=== PATIENT | male | born 1940 ===

== ENCOUNTER 2017-10-28 15:46 | Observation (INO) | payer OTHER ==
[2017-10-28] MEDS ORDERED: ONDANSETRON 4 MG/2 ML VIAL IVP PRN (16:14)
[2017-10-28] MEDS ORDERED: ONDANSETRON DISINTEGRATING 4 MG TAB PO PRN (16:14)
[2017-10-28] MEDS ORDERED: DILTIAZEM 125 MG in D5W 125 ML IV SCH (16:30)
[2017-10-28] MEDS ORDERED: DILTIAZEM 25 MG/5 ML VIAL IVP ONE ×2 (16:30→18:15)
[2017-10-28 17:13] LABS: % IMMATURE GRANULYOCYTES 0.8 % (0.0-1.1); ABSOLUTE IMMATURE GRANULOCYTES 0.12 10^3/uL (0.00-0.10); ADD DIFF? NO; ADD MORPH? NO; ADD SCAN? NO; ATYPICAL LYMPHOCYTE FLAG 0 (0-99); FRAGMENT RBC FLAG 0 (0-99); HEMATOCRIT 40.7 % (40.0-51.0); HEMOGLOBIN 13.8 g/dL (13.7-17.5); LEFT SHIFT FLG 0 (0-99); LIPEMIA HEMOLYSIS FLAG 90 (0-99); MEAN CELL HEMOGLOBIN 28.5 pg (27.9-34.1); MEAN CELL HEMOGLOBIN CONCENTR. 33.9 g/dL (32.4-36.7); MEAN CELL VOLUME 83.9 fL (81.5-99.8); PLATELET CLUMPS FLAG 40 (0-99); PLATELET COUNT 171 10^3/uL (150-400); RED BLOOD CELL COUNT 4.85 10^6/uL (4.40-6.38); RED CELL DISTRIBUTION WIDTH 15.4 % (11.5-15.2)
[2017-10-28 17:21] LABS: INR 0.97 (0.83-1.16); PROTIME(PATIENT) 13.1 SEC (12.0-15.0)
[2017-10-28 17:22] LABS: ANION GAP 12 mEq/L (8-16); CALCIUM 9.2 mg/dL (8.5-10.4); CARBON DIOXIDE 24 mEq/l (22-31); CHLORIDE 104 mEq/L (97-110); CREATININE 1.1 mg/dL (0.7-1.3); GLOMERULAR FILTRATION RATE > 60; GLUCOSE 84 mg/dL (70-100); POTASSIUM 4.5 mEq/L (3.5-5.2); SODIUM 140 mEq/L (134-144)
--- NOTE | 2017-10-28 17:34 | PDCARPN ---
Cardiology Progress Note Chief Complaint: Patient reports fatigue and shortness of breath. Assessment/Plan: Assessment: Please see Dr. Friedman us office note from 10/28/2017, to be used as our history and physical. Mr. Arturo Javier is a 76-year-old male with known history paroxysmal atrial fibrillation, non flow limiting CAD, hyperlipidemia, hypertension, emphysema, past history of carotid enterectomy, past history of atrial fibrillation ablation. He had noted increased elevated heart rate yesterday, with symptoms of fatigue and lightheadedness. He presented to [facility] emergency department yesterday, in which she was given an IV dose of diltiazem, which attempted rate control, they had notify Dr. Friedman , which in office appointment was made. Patient reported he had gone home, had felt well, did take his , vent nebulizer, and did develop again a another episode fast palpitations. Presenting get into the emergency department for another dose of diltiazem. He was seen by Dr. Friedman in the office, in which she was noted to be in AFib with rapid ventricular response, ventricular rate at 130 BPM. He reporting feeling fatigued and tired, denying of any chest pressure , pain, or shortness of breath. Plan: 1. Persistent atrial fibrillation with rapid ventricular response: Will have patient get laboratory studies including CBC, BMP, and TSH. Will plan on starting him on diltiazem drip tonight with IV bolus. If he has not converted by tomorrow morning, he is scheduled for a RAMONE cardioversion. He will be made NPO after midnight. We will resume his home Eliquis dose. Will have him get an echocardiogram this evening for further evaluation. 2. Non flow limiting CAD: Noted off of cardiac catheterization multiple years ago. He denies of any chest pain or symptoms suggesting of ischemia. He is currently not on aspirin therapy due to being on Eliquis. He has on secondary risk prevention with atorvastatin. Evaluate LV function off of echo. Cycle troponins 3. Hypertension: Patient noted history of hypertension, blood pressure is within normal limits today. Will monitor closely with starting of diltiazem drip, just if necessary. 4. Hyperlipidemia: Will resume patient's home dose of atorvastatin. 5. COPD: Will resume home nebulizers. 6. DVT prophylaxis: Patient is considered a high risk , Elio hose have been ordered. Will resume him on Eliquis as mentioned above. 7. Code status: Patient is a full code. 10/28/17 17:34 Subjective: Patient denies of any chest pressure or pain. Reports fatigue symptoms with occasional lightheadedness. Denies of any shortness breath, Orthopnea, PND, edema, lightheadedness, near-syncope, or syncopal events. Objective: Vital Signs (8 Hrs) Temp Pulse Resp BP Pulse Ox 10/28/17 17:30 120 H 10/28/17 17:24 121 H 10/28/17 17:02 36.8 C 122 H 16 129/92 H 95 Result Diagrams: 10/28/17 16:30 10/28/17 16:30 - Physical Exam Constitutional: WDWN, no apparent distress, obese Ears, Nose, Mouth, Throat: moist mucous membranes Cardiovascular: no rubs, no gallops, irregularly irregular ( AFib on monitor), pulses symmetric bilat, No jugular vein distention, No carotid bruit Peripheral Pulses: 1+: dorsalis-pedis (R), dorsalis-pedis (L), 2+: carotid (R), carotid (L) Respiratory: no crackles, expiratory wheeze, other ( no rales noted.) Gastrointestinal: normoactive bowel sounds Skin: no rashes, warm, no edema Neurologic: AAOx3 Psychiatric: cooperative, interactive, following commands ICD10 Worksheet Patient Problems: Problems Problem Status Onset Atrial fibrillation and flutter Acute
[2017-10-28] MEDS: IPRATROPIUM/ALBUTEROL 3 ML DEYVIAL IH SCH (20:46)
[2017-10-28] MEDS: BUDESONIDE/FORMOTEROL 160/4.5 60 PUFFS/MDI IH SCH (20:46)
[2017-10-28] MEDS ORDERED: ATORVASTATIN CALCIUM 20 MG TAB PO SCH (21:00)
[2017-10-28] MEDS: APIXABAN 5 MG TAB PO SCH (21:14)
[2017-10-29 05:33] LABS: ANION GAP 10 mEq/L (8-16); CARBON DIOXIDE 26 mEq/l (22-31); CHLORIDE 107 mEq/L (97-110); CREATININE 1.1 mg/dL (0.7-1.3); GLOMERULAR FILTRATION RATE > 60; GLUCOSE 95 mg/dL (70-100); POTASSIUM 4.7 mEq/L (3.5-5.2); SODIUM 143 mEq/L (134-144)
[2017-10-29 05:39] LABS: TROPONIN I < 0.012 ng/mL (0.000-0.034)
[2017-10-29] MEDS ORDERED: ATROPINE SULFATE 1 MG/10 ML SYR IVP ONE (06:00)
[2017-10-29] MEDS ORDERED: NS 1,000 ML IV ONE (06:00)
[2017-10-29 07:38] VITALS: TEMP 97.8; O2SAT 95
[2017-10-29] MEDS ORDERED: CYANO/VITAMIN B12 1000 MCG TAB PO SCH (09:00)
[2017-10-29] MEDS ORDERED: MULTIVITAMINS 1 EACH TAB PO SCH (09:00)
--- NOTE | 2017-10-29 09:01 | CPEKG ---
Heart Rate: 94 RR Interval: 638 P-R Interval: 115 QRSD Interval: 102 QT Interval: 368 QTC Interval: 461 P [place]: 0 QRS [place]: 48 T Wave [place]: 67 EKG Severity - ABNORMAL ECG - EKG Impression: SINUS RHYTHM - POSSIBLE ATRIAL FLUTTER WITH BLOCK EKG Impression: PROBABLE LEFT ATRIAL ABNORMALITY EKG Impression: LOW VOLTAGE IN FRONTAL LEADS EKG Impression: NONSPECIFIC T ABNORMALITIES, INFERIOR LEADS Electronically Signed By: Constance Ford 29-Oct-2017 10:43:19
[2017-10-29] MEDS: APIXABAN 5 MG TAB PO SCH (09:13)
--- NOTE | 2017-10-29 09:46 | ASMTCASEMG ---
Living Arrangements What is your living Answers: With Spouse arrangement? Who do you live with? Type Of Residence What kind of residence do Answers: House you live in? Discharge Plan Comments Coordination Status Comments Notes: CM spoke w/ ZEN Tolentino regarding d/c POC. Pt is a 76 y/o man admitted for AFIB/SOB. Anticipates that pt will d/c independent when medically stable w/ supportive . No therapies ordered at this time. CM available for changes. Plan: Independent Date Signed: 10/29/2017 09:44 AM Electronically Signed By:LISA Andrews
--- NOTE | 2017-10-29 10:07 | PDANEPAE ---
ANE History of Present Illness 76 year old male w/ A. Fib w/ RVR (on diltiazem drip) presents for CV. Patient has a known PMHx of CAD (non flow limiting), HTN, HLD, COPD. ANE Past Medical History - Cardiovascular History Hx Hypertension: Yes Hx Arrhythmias: Yes Hx Chest Pain: No Hx Coronary Artery / Peripheral Vascular Disease: Yes Hx CHF / Valvular Disease: No Hx Palpitations: No - Pulmonary History Hx COPD: Yes Hx Asthma/Reactive Airway Disease: No Hx Recent Upper Respiratory Infection: No Hx Oxygen in Use at Home: No Hx Sleep Apnea: No Sleep Apnea Screening Result - Last Documented: Positive - Endocrine History Hx Diabetes: No Hypothyroid: No Hyperthyroid: No Obesity: no - Renal History Hx Renal Disorders: No - Liver History Hx Hepatic Disorders: No - Neurological & Psychiatric Hx Hx Neurological and Psychiatric Disorders: No - Cancer History Hx Cancer: No - GI History GERD: no Hx Gastrointestinal Disorders: No - Chronic Pain History Chronic Pain: No ANE Review of Systems Review of systems is: negative Review of Systems: - Exercise capacity Exercise capacity: <4 METS ANE Patient History - Allergies Allergies/Adverse Reactions: Beta-Blockers (Beta-Adrenergic Bloc Allergy (Verified 04/30/11 07:58) - Home Medications Home Medications: Apixaban [Eliquis] 5 mg PO BID 06/26/15 [Last Taken 10/28/17 09:00] Atorvastatin Calcium [Lipitor 20 mg (*)] 20 mg PO HS 06/26/15 [Last Taken ] Ipratropium/Albuterol [Duoneb (*)] 3 ml IH BID 06/26/15 [Last Taken 10/27/17] Multivitamins [Multivitamin (*)] 1 each PO DAILY 06/26/15 [Last Taken 10/27/17] Budesonide/Formoterol 160/4.5 [Symbicort 160-4.5 Mcg Inh (*)] 2 puffs IH BID [Last Taken 10/28/17 09:00] Cyanocobalamin [Vitamin B12 (*)] 5,000 mcg PO DAILY 10/28/17 [Last Taken ] Diltiazem Cd [Cardizem ER 120 MG (*)] 120 mg PO DAILY 10/28/17 [Last Taken 10/28] Lisinopril [Zestril 10 mg (*)] 10 mg PO HS 10/28/17 [Last Taken 10/27/17] Temazepam [Restoril 15 MG (*)] 15 mg PO HSPRN PRN 10/28/17 [Last Taken 10/27/17] - NPO status NPO Status: no food or drink >8 hours NPO Since - Liquids (Date): 10/29/17 NPO Since - Liquids (Time): 00:00 NPO Since - Solids (Date): 10/28/17 NPO Since - Solids (Time): 19:00 - Anes Hx Anes Hx: no prior problems - Smoking Hx Smoking Status: Former smoker Marijuana use: No - Alcohol Use Alcohol Use: Rarely - Family Anes Hx Family Anes Hx: neg - N/A ANE Labs/Vital Signs - Labs Result Diagrams: 10/28/17 16:30 10/29/17 05:08 - Vital Signs Vital Signs: reviewed preoperatively; see RN documention for details Blood Pressure: 135/91 Heart Rate: 94 Respiratory Rate: 14 O2 Sat (%): 95 Height: 180.34 cm ANE Physical Exam - Airway Neck exam: FROM Mallampati Score: Class 2 Mouth exam: dentures, prajapati - Pulmonary Pulmonary: reduced air movement, bronchial breath sounds - Cardiovascular Cardiovascular: irregularly irregular - ASA Status ASA Status: III ANE Anesthesia Plan Anesthesia Plan: GA with mask Total IV Anesthesia: Yes
[2017-10-29] MEDS ORDERED: PROPOFOL 200 MG/20 ML VIAL ONE (10:27)
[2017-10-29] MEDS: IPRATROPIUM/ALBUTEROL 3 ML DEYVIAL IH SCH (10:27)
[2017-10-29] MEDS: BUDESONIDE/FORMOTEROL 160/4.5 60 PUFFS/MDI IH SCH (10:27)
--- NOTE | 2017-10-29 10:36 | PDHPUP ---
History & Physical Update H&P update statement: This history and physical update is based on an assessment of the patient which was completed after admission or registration (within 24 hours), but prior to the surgery/procedure. H&P update: H&P reviewed & patient examined, no change in patient's condition since H&P completed
--- NOTE | 2017-10-29 10:54 | CPEKG ---
Heart Rate: 77 RR Interval: 779 P-R Interval: 132 QRSD Interval: 88 QT Interval: 384 QTC Interval: 435 P [place]: 79 QRS [place]: 37 T Wave [place]: 50 EKG Severity - OTHERWISE NORMAL ECG - EKG Impression: SINUS RHYTHM EKG Impression: ATRIAL PREMATURE COMPLEX EKG Impression: LOW VOLTAGE IN FRONTAL LEADS Electronically Signed By: Constance Ford 29-Oct-2017 19:04:15
[2017-10-29] MEDS ORDERED: DILTIAZEM CD 120 MG CAP PO SCH (11:15)
--- NOTE | 2017-10-29 12:26 | ECHO ---
[email or web address] [address] Main: [phone] Fax: Transthoracic Echocardiogram Name: MAI WINN MR#: [id number] Study Date: 10/28/2017 Study Time: 04:19 PM Date of : 1940 Age: 76 year(s) Height: 180.3 cm (71 in.) Weight: 88.45 kg (195 lb.) BSA: 2.09 m2 Gender: Male Examination: Echo Indication: Atrial Flutter Image Quality: Contrast: Requested by: Alan Friedman BP: / Heart Rate: Rhythm: Indication: Atrial Flutter Procedure Staff Deputy Administrator: Sofia Felipe Physician: Wang Vaughan Requesting Provider: Conclusions: Normal size left ventricle. No LV hypertrophy. Normal global systolic LV function. The ejection fraction is estimated to be 55-60 %. Normal diastolic LV function. The left atrium is mildly dilated. The right atrium is mildly dilated. Trivial mitral valve regurgitation. Trivial tricuspid valve regurgitation. Left side pleural effusion. Measurements: Chambers Valvular Assessment AV/MV Valvular Assessment TV/PV Normal Normal Normal Name Value Range Name Value Range Name Value Range Ao [place] (MM): 3.6 cm (2.2 cm-3.7 AV meanP mmHg ( - ) TR Vmax: 2.04 mm/s ( - ) cm) MV E Vmax: 0.94 m/s ( - ) TR PGmax: 17 mmHg ( - ) IVSd (2D): 0.8 cm (0.6 cm-1.1 syst. PAP: 22 mmHg ( - ) cm) LVDd (2D): 5.2 cm (4.2 cm-5.9 cm) LVDs (2D): 3.5 cm (2.1 cm-4 cm) LVPWd (2D): 0.9 cm (0.6 cm-1 cm) LVEF (2D): 61 (>=54 %) EF Range: 55-60 % Continued Measurements: Chambers Valvular Assessment TV/PV Patient: MAI WINN Study Date: 10/28/2017 Page 1 of 2 04:19 PM Name Value Name Value LADs: 4.2 cm CVP (est.): 5 mmHg LADs Lon.6 cm LA Area: 21.7 cm2 Findings: Left Ventricle: Normal size left ventricle. No LV hypertrophy. Normal global systolic LV function. The ejection fraction is estimated to be 55-60 %. No regional wall motion abnormality. Normal diastolic LV function. Right Ventricle: Normal size right ventricle. Left Atrium: The left atrium is mildly dilated. Right Atrium: The right atrium is mildly dilated. Mitral Valve: The mitral valve is normal in appearance and function. Trivial mitral valve regurgitation. Aortic Valve: The aortic valve is normal in appearance and function. Tricuspid Valve: The tricuspid valve is normal in appearance and function. Trivial tricuspid valve regurgitation. Pulmonic Valve: The pulmonic valve is normal in appearance and function. Aorta: The aorta is normal. Pericardium: No pericardial effusion. Left side pleural effusion. (No Signature Object) Patient: MAI WINN Study Date: 10/28/2017 Page 2 of 2 04:19 PM [id number]
[2017-10-29 13:04] VITALS: BP 147/93; PULSE 102; RESP 16
--- NOTE | 2017-10-29 13:42 | GDS ---
[f rep st] DISCHARGE SUMMARY ADMISSION DIAGNOSES: 1. Persistent atrial fibrillation with rapid ventricular response. 2. Btu-kmut-mtjetzns coronary artery disease. 3. Hypertension. 4. Hyperlipidemia. 5. Chronic obstructive pulmonary disease. 6. Peripheral vascular disease. DISCHARGE DIAGNOSES: 1. Paroxysmal atrial fibrillation. 2. Ipp-crcc-blfygraa coronary artery disease. 3. Hypertension. 4. Hyperlipidemia. 5. Chronic obstructive pulmonary disease. 6. Peripheral vascular disease. PROCEDURES PERFORMED DURING HOSPITALIZATION: 1. Electrocardiogram. 2. Cardioversion. BRIEF HISTORY: Please see H and P. briefly, the patient is a 76-year-old male with known history of paroxysmal atrial fibrillation. He has been noted to have an ablation in the past. He reported, st arting on October 27, having episodes of increased elevated heart rate. He was seen at [facility] department for his complaint, was given IV diltiazem, slowed down, and sent home. Unfortuna tely, when he went home and took his nebulizer treatment for his emphysema, heart rate increased agai n, requiring a repeated visit later that afternoon. Again, IV diltiazem was given and sent home. He was seen in our office yesterday by Dr. Friedman, and due to how fast his rate was going in atrial fibril lation, around 130-140 BPM, it was decided for the patient to be directly admitted to the hospital fo r IV diltiazem for rate control, with plans of cardioversion. HOSPITAL COURSE: Patient was admitted to the PCU. There, he was started on IV diltiazem, in which r ate was controlled. He reported no chest pain or shortness of breath. He has had no abnormal tropon in levels. He did have an echocardiogram done, showing normal LV wall motion. This morning, his rat e was much better controlled, he was made n.p.o. last night, and he underwent cardioversion by Dr. Yosef ontiveros, successfully converting him back into sinus rhythm. At the current time, he denies having any ch est pain, shortness of breath, palpitations, or lightheadedness. He is in sinus rhythm on the monito rs. PHYSICAL EXAMINATION: GENERAL APPEARANCE: Done today, medium built, mildly obese male. H e is alert and oriented to person, place, time, and situation. Appears to be in no acute distress. CURRENT VITAL SIGNS: Blood pressure is 135/97, 73 sinus rhythm on the monitor, respirations 14, satu rating 95%. Temperature this morning was 36.6 degrees Celsius. HEENT: Head is normocephalic. Lips and tongue are pink and moist, with no signs of cyanosis. Conjunctivae are pink. NECK: Trachea is midline, +2 carotid pulses bilateral. No auscultated bruits, no jugular vein distention. RESPIRATO RY: Lungs are clear to auscultation, no rhonchi, rales or wheezes. No accessory muscle use. No int ercostal muscle retraction noted. CARDIAC: Regular rate, regular rhythm, S1, S2. No S3, S4, gallop s, rubs or murmur. ABDOMEN: Soft, nontender, bowel sounds x4 quadrants. No organomegaly. No palpa ble masses. SKIN: [place], warm, dry, no cyanosis, no clubbing, no peripheral edema, trace pedal edema bilateral lower extremities. VASCULAR: +2 carotids bilateral, +2 radials bilateral, +1 dorsal peda l and posterior tibial pulses bilateral. LABORATORY STUDIES: Laboratory studies drawn on admission showed WBC of 14.53, hemoglobin of 13.8, h ematocrit of 40.7, platelet count of 171, INR of 0.97. Patient was noted to have 3 negative troponin levels during hospitalization, all less than 0.012. TSH was 1.120. This morning's laboratory showe d sodium of 143, potassium 4.07, chloride 107, CO2 26, BUN 26, creatinine 1.1, glucose 95, calcium 9. 0. DISCHARGE STUDIES: Post cardioversion electrocardiogram done today showing sinus rhythm with prematu re atrial contraction, no significant ST or T-wave abnormalities. Preliminary echocardiogram showing normal LV wall motion with normal ejection fraction. Cardioversion as mentioned above. DISCHARGE INSTRUCTIONS: Post cardioversion discharge instructions given to the patient. DISCHARGE MEDICATIONS: Please see discharge med reconciliation sheet. Note that Dr. Friedman has wanted the patient's diltiazem to be increased to 120 mg p.o. b.i.d. He will resume all the rest of his alexx e medications. DISCHARGE INSTRUCTIONS: Post cardioversion discharge instructions went over with the patient and his , and they verbalized understanding. Dr. Friedman's nurse will call the patient early next week and set up an appointment to potentially undergo ablation in the next few weeks. At the time of discharg e, patient and his both verbalized understanding of all instructions and have no questions or co ncerns. The patient will follow up with Dr. Friedman for ablation. If he has any problems or concerns pos t discharge, they are to call our office or return to the hospital. Total time spent on discharge greater than 30 minutes. /[id number]/MODL
--- NOTE | 2017-10-29 15:06 | POSTANESTH ---
Post Anesthetic Evaluation Cardiovascular Status: Normal, Stable, Similar to Pre-Op Cond Respiratory Status: Normal, Stable, Similar to Pre-op Cond. Level of Consciousness/Mental Status: Can Participate in Eval, Alert and Oriented Pain Control: Adequate, Prn Tx Ordered Nausea/Vomiting Control: Adequate, Prn Tx Ordered Complications Possibly Related to Anesthesia: None Noted
--- NOTE | 2017-10-30 08:44 | EPPROC ---
Electrophysiology Procedure Note: Procedure: DCCV Indication: AF Procedure: pt sedated by members of anesthesia staff. Once sedated, 200 J of synchronized DCCV performed. Pt successfully converted to SR. Conclusion: Successful CV Patient Problems: Problems Problem Status Onset Atrial fibrillation and flutter Acute
--- NOTE | 2017-10-30 15:37 | ASDISCHSUM ---
Discharge Information Plan Status:Home with No Needs Medically Cleared to Leave: Discharge Date:10/29/2017 01:10 PM CM D/C Disposition:Home, Routine, Self-Care ADT D/C Disposition:Home, Routine, Self-Care Projected Discharge Date:10/29/2017 01:10 PM Transportation at D/C: Discharge Delay Reason: Follow-Up Date:10/29/2017 01:10 PM Discharge Slot: Final Diagnosis: Placement Information Patient Contact Information Contact Name:DONAVAN Relationship: Address:[address] [place] Alternate Phone: [facility]/Zip Code:[place] [address] Email: Financial Information Financial Class:Medicare Advantage Plans Primary Plan Desc:[facility] ADVANTAGE PLANS Primary Plan Number:[id number] Secondary Plan Desc: Secondary Plan Number: Assessment Information [facility] Initial CM Assessment Living Arrangements What is your living Answers: With Spouse arrangement? Who do you live with? Type Of Residence What kind of residence do Answers: House you live in? Discharge Plan Comments Coordination Status Comments Notes: CM spoke w/ ZEN Tolentino regarding d/c POC. Pt is a 76 y/o man admitted for AFIB/SOB. Anticipates that pt will d/c independent when medically stable w/ supportive . No therapies ordered at this time. CM available for changes. Plan: Independent Date Signed: 10/29/2017 09:44 AM Electronically Signed By:LISA Andrews Intervention Information Intervention Type:*Incorrect Registration Date of Service:10/28/2017 11:40 AM Patient Type:Observation Staff Member:ZEN Overton, Mel Hours: Discipline: Severity: Comment:
== END 2017-10-29 13:10 | disposition home or self-care (01) ==
LOC: INTOOBSV 16:06 → F2W 16:06
PROVIDERS: ADMIT Internal Medicine Cardiovascular Disease; ATTEND Internal Medicine Cardiovascular Disease
PROC: 5A2204Z Restoration of Cardiac Rhythm, Single (ICD-10-PCS; principal; 2017-10-28)
DX: I48.0 Paroxysmal atrial fibrillation (principal); I25.10 Atherosclerotic heart disease of native coronary artery without angina pectoris; I10 Essential (primary) hypertension; E78.5 Hyperlipidemia, unspecified; J44.9 Chronic obstructive pulmonary disease, unspecified; I73.9 Peripheral vascular disease, unspecified
CPT/HCPCS: 92960; 93005; 93306; G0378; J2704

== ENCOUNTER → 2017-11-19 | Day surgery (SDC) | payer OTHER ==
[~2017-11-19] MED LIST: ATROPINE SULFATE 1 MG/10 ML SYR IVP ONE; ATROPINE SULFATE 1 MG/10 ML SYR ONE; MIDAZOLAM 2 MG/2 ML VIAL IVP ONE; NS 500 ML IV ONE; PROPOFOL 200 MG/20 ML VIAL ONE; fentaNYL 100 MCG/2 ML INJ IVP ONE
--- NOTE | 2017-11-19 10:08 | POSTANESTH ---
Post Anesthetic Evaluation Cardiovascular Status: Similar to Pre-Op Cond Respiratory Status: Similar to Pre-op Cond. Level of Consciousness/Mental Status: Can Participate in Eval, Moderately Sleepy Pain Control: Adequate, Prn Tx Ordered Nausea/Vomiting Control: Adequate, Prn Tx Ordered Complications Possibly Related to Anesthesia: None Noted
--- NOTE | 2017-11-19 10:08 | PDANEPAE ---
ANE History of Present Illness Cardioversion ANE Past Medical History - Cardiovascular History Hx Hypertension: Yes Hx Arrhythmias: Yes Hx Chest Pain: No Hx Coronary Artery / Peripheral Vascular Disease: Yes Hx CHF / Valvular Disease: Yes Hx Palpitations: No - Pulmonary History Hx COPD: Yes Hx Asthma/Reactive Airway Disease: No Hx Recent Upper Respiratory Infection: No Hx Oxygen in Use at Home: No Hx Sleep Apnea: No - Endocrine History Hx Diabetes: No - Renal History Hx Renal Disorders: No - Liver History Hx Hepatic Disorders: No - Neurological & Psychiatric Hx Hx Neurological and Psychiatric Disorders: No - Cancer History Hx Cancer: No - GI History Hx Gastrointestinal Disorders: No - Chronic Pain History Chronic Pain: No ANE Review of Systems Review of Systems: SOB secondary to a flutter, COPD - Exercise capacity Exercise capacity: >=4 METS ANE Patient History - Allergies Allergies/Adverse Reactions: Beta-Blockers (Beta-Adrenergic Bloc Allergy (Verified 04/30/11 07:58) - Home Medications Home medications: home medication list seen and reviewed Home Medications: Apixaban [Eliquis] 5 mg PO BID 06/26/15 [Last Taken 10/28/17 09:00] Atorvastatin Calcium [Lipitor 20 mg (*)] 20 mg PO HS 06/26/15 [Last Taken ] Ipratropium/Albuterol [Duoneb (*)] 3 ml IH BID 06/26/15 [Last Taken 10/27/17] Multivitamins [Multivitamin (*)] 1 each PO DAILY 06/26/15 [Last Taken 10/27/17] Budesonide/Formoterol 160/4.5 [Symbicort 160-4.5 Mcg Inh (*)] 2 puffs IH BID [Last Taken 10/28/17 09:00] Cyanocobalamin [Vitamin B12 (*)] 5,000 mcg PO DAILY 10/28/17 [Last Taken ] Lisinopril [Zestril 10 mg (*)] 10 mg PO HS 10/28/17 [Last Taken 10/27/17] Temazepam [Restoril 15 MG (*)] 15 mg PO HSPRN PRN 10/28/17 [Last Taken 10/27/17] - NPO status NPO Status: no food or drink >8 hours - Anes Hx Anes Hx: no prior problems - Smoking Hx Smoking Status: Former smoker - Family Anes Hx Family Anes Hx: none ANE Labs/Vital Signs - Labs Result Diagrams: 11/19/17 10:05 ANE Physical Exam - Airway Neck exam: FROM Mallampati Score: Class 2 Mouth exam: dentures - Pulmonary Pulmonary: no respiratory distress - Cardiovascular Cardiovascular: regular rate and rhythym - ASA Status ASA Status: III ANE Anesthesia Plan Total IV Anesthesia: Yes
[2017-11-19 10:37] LABS: INR 1.21 (0.83-1.16); PROTIME(PATIENT) 15.5 SEC (12.0-15.0)
--- NOTE | 2017-11-19 11:00 | PDCARD ---
Cardioversion Procedure Procedure: electrical cardioversion Indications: atrial fibrillation Consent: signed and in chart Anticoagulation: eliquis Procedural Details: Pads were placed in anterior-posterior position. Synchronized cardioversion attempt #1: 200J Results: normal sinus rhythm Conclusions: successful cardioversion Patient Problems: Problems Problem Status Onset Atrial fibrillation and flutter Acute
--- NOTE | 2017-11-23 15:10 | CPEKG ---
Heart Rate: 91 RR Interval: 659 P-R Interval: 132 QRSD Interval: 82 QT Interval: 352 QTC Interval: 434 P [place]: 75 QRS [place]: 26 T Wave [place]: 82 EKG Severity - ABNORMAL ECG - EKG Impression: SINUS RHYTHM EKG Impression: CONSIDER POSTERIOR INFARCT Electronically Signed By: Alan Friedman 23-Nov-2017 20:29:32
== END | disposition home or self-care (01) ==
LOC: FCATH 09:40
PROVIDERS: ATTEND Internal Medicine Cardiovascular Disease
PROC: 5A2204Z Restoration of Cardiac Rhythm, Single (ICD-10-PCS; principal; 2017-11-19)
DX: I48.91 Unspecified atrial fibrillation (principal); I48.92 Unspecified atrial flutter; J44.1 Chronic obstructive pulmonary disease with (acute) exacerbation; Z87.891 Personal history of nicotine dependence
CPT/HCPCS: J0461; J2704

== ENCOUNTER → 2017-12-18 | Outpatient (CLI) | payer OTHER ==
[~2017-12-18] MED LIST changes: -ATROPINE SULFATE 1 MG/10 ML SYR IVP ONE; -ATROPINE SULFATE 1 MG/10 ML SYR ONE; +IOPAMIDOL (ISOVUE 370) 100 ML BTL IV ONE; -MIDAZOLAM 2 MG/2 ML VIAL IVP ONE; -NS 500 ML IV ONE; -PROPOFOL 200 MG/20 ML VIAL ONE; -fentaNYL 100 MCG/2 ML INJ IVP ONE
== END ==
LOC: FIMAGING 09:50
PROVIDERS: ATTEND Internal Medicine Cardiovascular Disease
DX: I48.91 Unspecified atrial fibrillation (principal); I48.92 Unspecified atrial flutter
CPT/HCPCS: 75572; Q9967

== ENCOUNTER 2017-12-21 10:41 | Observation (INO) | payer OTHER ==
[2017-12-21] MEDS ORDERED: NS 1,000 ML IV ONE (10:48)
[2017-12-21] MEDS ORDERED: MIDAZOLAM 2 MG/2 ML VIAL IVP ONE (11:06)
--- NOTE | 2017-12-21 11:06 | PDANEPAE ---
ANE Past Medical History - Cardiovascular History Hx Hypertension: Yes Hx Arrhythmias: Yes Hx Chest Pain: No Hx Coronary Artery / Peripheral Vascular Disease: Yes Hx CHF / Valvular Disease: Yes Hx Palpitations: No - Pulmonary History Hx COPD: Yes Hx Asthma/Reactive Airway Disease: No Hx Recent Upper Respiratory Infection: No Hx Oxygen in Use at Home: No Hx Sleep Apnea: No - Endocrine History Hx Diabetes: No - Renal History Hx Renal Disorders: No - Liver History Hx Hepatic Disorders: No - Neurological & Psychiatric Hx Hx Neurological and Psychiatric Disorders: No - Cancer History Hx Cancer: No - GI History Hx Gastrointestinal Disorders: No - Chronic Pain History Chronic Pain: No ANE Review of Systems Review of Systems: - Exercise capacity Exercise capacity: >=4 METS ANE Patient History - Allergies Allergies/Adverse Reactions: Beta-Blockers (Beta-Adrenergic Bloc Allergy (Verified 04/30/11 07:58) - Home Medications Home Medications: Apixaban [Eliquis] 5 mg PO BID 06/26/15 [Last Taken 11/19/17] Atorvastatin Calcium [Lipitor 20 mg (*)] 20 mg PO HS 06/26/15 [Last Taken ] Multivitamins [Multivitamin (*)] 1 each PO DAILY 06/26/15 [Last Taken 11/18/17] Cyanocobalamin [Vitamin B12 (*)] 5,000 mcg PO DAILY 10/28/17 [Last Taken ] Lisinopril [Zestril 10 mg (*)] 10 mg PO HS 10/28/17 [Last Taken 11/18/17] Temazepam [Restoril 15 MG (*)] 15 mg PO HSPRN PRN 10/28/17 [Last Taken 11/18/17] Omeprazole [Prilosec 20 mg] 20 mg PO DAILY 12/14/17 [Last Taken Unknown] Umeclidinium Brm/Vilanterol Tr [Anoro Ellipta 62.5-25 Mcg INH] 1 each IH DAILY 12/14/17 [Last Taken Unknown] - NPO status NPO Status: no food or drink >8 hours - Anes Hx Anes Hx: no prior problems - Smoking Hx Smoking Status: Former smoker ANE Physical Exam - Airway Neck exam: FROM Mallampati Score: Class 2 Mouth exam: normal dental/mouth exam - Pulmonary Pulmonary: no respiratory distress, no rales or rhonchi, clear to auscultation - Cardiovascular Cardiovascular: regular rate and rhythym, no murmur, rub, or gallop - ASA Status ASA Status: III ANE Anesthesia Plan Anesthesia Plan: GA w LMA
--- NOTE | 2017-12-21 11:10 | PDGENHP ---
History & Physical Chief Complaint: Palpitations History of Present Illness: CB ablation 2014, now has left AT vs AFL Relevant Physical Exam: s1s2 irreg. cta. ao 3 Cardiorespiratory Assessment: left at vs afl ablation
[2017-12-21 11:24] LABS: PLATELET COUNT 174 10^3/uL (150-400)
--- NOTE | 2017-12-21 11:31 | CPEKG ---
Heart Rate: 68 RR Interval: 882 P-R Interval: 140 QRSD Interval: 90 QT Interval: 396 QTC Interval: 422 P [place]: 65 QRS [place]: 24 T Wave [place]: 40 EKG Severity - NORMAL ECG - EKG Impression: SINUS RHYTHM Electronically Signed By: Alan Friedman 21-Dec-2017 13:37:17
[2017-12-21 11:33] LABS: INR 0.96 (0.83-1.16)
[2017-12-21] MEDS ORDERED: HEPARIN/DEXTROSE 25,000 UNIT/500 ML BAG ONE (11:40)
[2017-12-21] MEDS ORDERED: HEPARIN 10,000 UNIT/10 ML MDV (1,000 UNIT/ML) ONE (11:40)
[2017-12-21] MEDS ORDERED: BUPIVACAINE 0.5% 30 ML SDV ONE (11:40)
[2017-12-21] MEDS ORDERED: ISOPROTERENOL HCL/D5W 0.2 MG/50 ML BAG IV ONE (11:41)
[2017-12-21] MEDS ORDERED: MIDAZOLAM 2 MG/2 ML VIAL ONE (11:43)
[2017-12-21] MEDS ORDERED: fentaNYL 250 MCG/5 ML INJ ONE (12:13)
[2017-12-21] MEDS ORDERED: DEXAMETHASONE 4 MG/ML VIAL ONE (12:13)
[2017-12-21] MEDS ORDERED: LIDOCAINE 2% 5 ML SDV ONE (12:13)
[2017-12-21] MEDS ORDERED: ROCURONIUM 100 MG/10 ML VIAL ONE (12:13)
[2017-12-21] MEDS ORDERED: SUGAMMADEX SODIUM 200 MG/2 ML VIAL IVP ONE (12:13)
[2017-12-21] MEDS ORDERED: PROPOFOL 200 MG/20 ML VIAL ONE (12:13)
[2017-12-21] MEDS ORDERED: ONDANSETRON 4 MG/2 ML VIAL ONE (12:14)
[2017-12-21] MEDS ORDERED: PHENYLEPHRINE HCL 100 MCG/ML SYR ONE ×2 (13:33)
[2017-12-21] MEDS ORDERED: PROTAMINE SULFATE 50 MG/5 ML VIAL IVP ONE (14:25)
[2017-12-21] MEDS ORDERED: fentaNYL 100 MCG/2 ML INJ IVP PRN (14:32)
[2017-12-21] MEDS ORDERED: NALOXONE HCL 0.4 MG/ML INJ IVP PRN (14:32)
[2017-12-21] MEDS ORDERED: NS 500 ML IV PRN (14:32)
[2017-12-21] MEDS ORDERED: ACETAMINOPHEN 500 MG TAB PO PRN (14:32)
[2017-12-21] MEDS ORDERED: PROMETHAZINE HCL 25 MG/ML INJ IVP PRN (14:32)
[2017-12-21] MEDS ORDERED: MEPERIDINE 25 MG/ML SYR IVP PRN (14:32)
[2017-12-21] MEDS ORDERED: HYDROCODONE/APAP 5/325 TAB PO PRN (14:32)
[2017-12-21] MEDS ORDERED: ONDANSETRON 4 MG/2 ML VIAL IVP PRN (14:32)
--- NOTE | 2017-12-21 14:49 | EPPROC ---
Electrophysiology Procedure Note: ELECTROPHYSIOLOGIC STUDY AND CATHETER MEDIATED ABLATION FOR SUBEUSTACHIAN ISTHMUS DEPENDENT COUNTERCLOCKWISE ATRIAL FLUTTER AND MAPPING OF PULMONARY VEINS : INDICATION: AFIB CB ablation and AFL RF ablation at our institution in 2014 Atrial flutter vs atrial tachycardia in 2017 PROCEDURES PERFORMED: 20307-30 EP evaluation with RA/RV/LA pace/record, with arrhythmia induction 70440-33 EP evaluation with RA/RV pace record, insert/reposition catheter, with arrhythmia induction 24545 SVT ablation 08788 3D mapping Fluoroscopy Catheters & Anesthesia: The patient arrived in the Electrophysiology Laboratory in the fasting state. The right clavicular region, right groin, and left groin area were prepped and draped in the usual sterile manner. Anesthesiologist Dr. Dayanara Aquino administered general anesthesia. Appropriate non-invasive blood pressure, pulse oximetry and end-tidal CO2 monitoring was established. All catheters were placed percutaneously using the modified Seldinger technique , and advanced into position under fluoroscopic guidance. One #7 Macanese deflectable octapolar electrode catheter was advanced to the His-bundle position via the left femoral vein (2mm spacing; except the proximal ring which was 25cm from the tip used for unipolar recordings). One #7 Macanese deflectable catheter with 10 pairs of electrodes was placed via the left femoral vein into the coronary sinus. One # 7 Macanese Halo catheter was inserted through the right femoral vein and was placed at the tricuspid annulus. Heparin was administered to keep ACT > 300 seconds. Programmed stimulation was performed from the right atrium, coronary sinus ( left atrium) and right ventricle. Parahisian pacing demonstrated all retrograde conduction over the AV node. On arrival to the Electrophysiology Laboratory the patient was in sinus rhythm. After placement of the catheters it was noted that there was conduction across the cava tricuspid isthmus. An Agilis sheath was placed and a ST SF catheter was placed. Catheter manipulation near the tricuspid annulus caused conduction block across the cava tricuspid isthmus. RF ablation was applied at this area and in the mid and proximal isthmus. Bidirectional block was achieved with septal to lateral conduction time of 155 milliseconds. Following this, 2 microgram/minute of isoproterenol was administered, program stimulation did not induce any atrial arrhythmias. Intracardiac ECHO catheter was placed, Agilis sheath was advanced into the left atrium. Using a PentaRay catheter, a high-resolution 3D map of the left atrium and all 4 pulmonary veins was obtained. All 4 pulmonary veins were isolated from the prior ablation. No other areas suitable for ablation were noted. Especially given that no other arrhythmias were inducible, we elected not to perform any ablation left atrium. The catheters were removed. Vascular access sheaths were removed in the EP lab after pursestring suture was applied. 4 Macanese sheath in left femoral artery was left in place. Protamine was administered. The patient was transferred to the cardiovascular holding area in stable condition. There were no apparent complications. CONCLUSIONS: 1. 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 2. Successful catheter mediated ablation of cavotricuspid isthmus achieving bi -directional conduction block across cavotricuspid isthmus. 3. No atrial arrhythmias inducible post ablation. 4. No apparent complications. Patient Problems: Problems Problem Status Onset Atrial fibrillation and flutter Acute
[2017-12-21] MEDS ORDERED: ATROPINE SULFATE 1 MG/10 ML SYR ONE (14:55)
--- NOTE | 2017-12-21 15:38 | CPEKG ---
Heart Rate: 83 RR Interval: 723 P-R Interval: 152 QRSD Interval: 90 QT Interval: 392 QTC Interval: 461 P [place]: 67 QRS [place]: 10 T Wave [place]: 58 EKG Severity - BORDERLINE ECG - EKG Impression: SINUS RHYTHM EKG Impression: LOW VOLTAGE IN FRONTAL LEADS EKG Impression: BORDERLINE T ABNORMALITIES, ANT-LAT LEADS Electronically Signed By: Alan Friedman 22-Dec-2017 08:34:59
--- NOTE | 2017-12-21 19:13 | POSTANESTH ---
Post Anesthetic Evaluation Cardiovascular Status: Normal, Stable, Similar to Pre-Op Cond Respiratory Status: Normal, Stable, Similar to Pre-op Cond. Level of Consciousness/Mental Status: Can Participate in Eval, Moderately Sleepy Pain Control: Adequate, Prn Tx Ordered Nausea/Vomiting Control: Adequate, Prn Tx Ordered Complications Possibly Related to Anesthesia: None Noted
[2017-12-21] MEDS: DILTIAZEM CD 120 MG CAP PO SCH (20:08)
[2017-12-21] MEDS ORDERED: LISINOPRIL 10 MG TAB PO SCH (21:00)
[2017-12-21] MEDS ORDERED: ATORVASTATIN CALCIUM 20 MG TAB PO SCH (21:00)
[2017-12-22 04:05] VITALS: BP 116/63
[2017-12-22 04:38] LABS: PLATELET COUNT 183 10^3/uL (150-400)
[2017-12-22 04:49] LABS: INR 1.01 (0.83-1.16); PROTIME(PATIENT) 13.5 SEC (12.0-15.0)
[2017-12-22 05:04] LABS: CREATINE KINASE 47 IU/L (0-224)
[2017-12-22 08:12] VITALS: PULSE 81; RESP 18; TEMP 97.8; O2SAT 94
[2017-12-22] MEDS: DILTIAZEM CD 120 MG CAP PO SCH (08:25)
[2017-12-22] MEDS ORDERED: ASPIRIN 81 MG CHEWABLE TAB PO SCH (09:00)
[2017-12-22] MEDS ORDERED: Umeclidinium Brm/Vilanterol Tr [Anoro Ellipta 62.5-25 Mcg Inh] IH SCH (09:00)
--- NOTE | 2017-12-22 09:10 | CPEKG ---
Heart Rate: 88 RR Interval: 682 P-R Interval: 144 QRSD Interval: 88 QT Interval: 368 QTC Interval: 446 P [place]: 61 QRS [place]: 27 EKG Severity - BORDERLINE ECG - EKG Impression: SINUS RHYTHM EKG Impression: BORDERLINE T WAVE ABNORMALITIES Electronically Signed By: Alan Friedman 22-Dec-2017 10:52:21
--- NOTE | 2017-12-22 10:38 | ECHO ---
[email or web address] [address] [address] Main: [phone] Fax: Transthoracic Echocardiogram Name: MAI WINN MR#: [id number] Study Date: 12/22/2017 Study Time: 09:09 AM Date of : 1940 Age: 76 year(s) Height: 177.8 cm (70 in.) Weight: 88.45 kg (195 lb.) BSA: 2.06 m2 Gender: Male Examination: Echo Indication: F/U post EP study 118 Image Quality: Contrast: Requested by: Alan Friedman BP: 118 mmHg/63 mmHg Heart Rate: Rhythm: Indication: F/U post EP study Procedure Staff Collar Fuser: Sofia Blount [facility] Reading Physician: Connor Grullon Requesting Provider: Conclusions: Normal size left ventricle. No LV hypertrophy. Global hypercontractility of the left ventricle. The ejection fraction is estimated to be 75-80 %. The left atrium is mildly dilated. Mild mitral annular calcification. Trivial mitral valve regurgitation. Minimal aortic cusp calcification is noted. Trivial tricuspid valve regurgitation. There is pericardial fat. Measurements: Chambers Valvular Assessment AV/MV Valvular Assessment TV/PV Normal Normal Normal Name Value Range Name Value Range Name Value Range Ao [place] (MM): 3.7 cm (2.2 cm-3.7 AV meanP mmHg ( - ) cm) MV E Vmax: 0.95 m/s ( - ) IVSd (2D): 0.7 cm (0.6 cm-1.1 MV A Vmax: 1.09 m/s ( - ) cm) MV E/A: 0.87 ( - ) LVDd (2D): 5.6 cm (4.2 cm-5.9 cm) LVDs (2D): 2.8 cm (2.1 cm-4 cm) LVPWd (2D): 0.8 cm (0.6 cm-1 cm) LVEF (MOD4): 82 % (>=55 %) EF Range: 75-80 % Continued Measurements: Patient: MAI WINN Study Date: 12/22/2017 Page 1 of 2 09:09 AM Chambers Valvular Assessment AV/MV Name Value Name Value LADs: 4.4 cm MV E/E' Septal: 18.10 LADs Lon.8 cm MV E/E' Lateral: 14.80 LA Area: 19.4 cm2 Findings: Left Ventricle: Normal size left ventricle. No LV hypertrophy. Global hypercontractility of the left ventricle. The ejection fraction is estimated to be 75-80 %. No regional wall motion abnormality. Right Ventricle: Normal size right ventricle. Left Atrium: The left atrium is mildly dilated. Right Atrium: The right atrium is normal in size. Mitral Valve: Mild mitral annular calcification. Trivial mitral valve regurgitation. Aortic Valve: The aortic valve is normal in appearance and function. Minimal aortic cusp calcification is noted. Tricuspid Valve: The tricuspid valve is normal in appearance and function. Trivial tricuspid valve regurgitation. Pulmonic Valve: The pulmonic valve is normal in appearance and function. Aorta: The aorta is normal. Pericardium: No pericardial effusion. There is pericardial fat. (No Signature Object) Patient: MAI WINN Study Date: 12/22/2017 Page 2 of 2 09:09 AM [id number]
--- NOTE | 2017-12-22 11:17 | GDS ---
[f rep st] DISCHARGE SUMMARY DISCHARGE DIAGNOSES: 1. Paroxysmal atrial flutter, status post atrial flutter ablation on 12/21/2017. 2. History of atrial flutter and atrial fibrillation ablation in 2014. HOSPITAL COURSE: For detailed H and P, please see prior dictation. Briefly, The patient is a 76-yea r-old male with a history of atrial fibrillation and atrial flutter status post ablation in June of 2015. He did well over the past 2 years, but then began having recurrent symptoms. He was noted to be in atrial flutter versus a left atrial tachycardia requiring cardioversion. He did not want medi gabe therapy in the form of antiarrhythmic therapy such as sotalol or amiodarone. Ultimately, he deci ded to proceed with an EP study and possible ablation with Dr. Alan Friedman. He was found to have atri al flutter which was ablated on December 21, 2017. The procedure was uncomplicated. The following da y, he denied any palpitations or chest discomfort. He was monitored on telemetry and remained in nor mal sinus rhythm with occasional PVCs. His EKG the day of discharge showed normal sinus rhythm with nonspecific ST-T wave changes. Echocardiogram showed a hyperdynamic LV without any pericardial effus ion. His troponin peaked at 0.131. PHYSICAL EXAMINATION: GENERAL: Patient appears in no acute distress. VITAL SIGNS: Blood pressure 116/63, heart rate 81, oxygen saturation of 94% on room air, afebrile. LUNGS: Clear to auscultation . No wheezes, rhonchi, or crackles auscultated. CARDIAC: Regular rate and rhythm without any signif icant murmurs, rubs, or gallops appreciated. EXTREMITIES: Palpable pulses bilaterally without any e vidence of hematoma or infection of the groins where access was obtained for the EP study. DISCHARGE MEDICATIONS: His medications are unchanged. He will continue multivitamin daily, Lipitor 20 mg at bedtime, Eliquis 5 mg twice daily, Zestril 10 mg at bedtime, Restoril 15 mg p.r.n. at bedtim e, vitamin B12 5000 mcg daily, Cardizem ER 120 mg twice daily, omeprazole 20 mg daily, Anoro Ellipta 62.5/25 mg inhaled daily. PLAN: The patient is currently stable and ready for discharge home. He has been given groin precaut ions. He will follow up with Dr. Friedman on January 28 at 1:15 p.m. /[id number]/ISAUROL
--- NOTE | 2017-12-22 11:48 | ASDISCHSUM ---
Discharge Information Plan Status:Home with No Needs Medically Cleared to Leave:12/21/2017 Discharge Date:12/22/2017 10:30 AM CM D/C Disposition:Home, Routine, Self-Care ADT D/C Disposition:Home, Routine, Self-Care Projected Discharge Date:12/22/2017 10:30 AM Transportation at D/C: Discharge Delay Reason: Follow-Up Date:12/22/2017 10:30 AM Discharge Slot: Final Diagnosis: Placement Information Patient Contact Information Contact Name:DONAVAN Relationship: Address:[address] City:[place] Alternate Phone: [facility]/Zip Code:[place] [address] Email: Financial Information Financial Class:Medicare Advantage Plans Primary Plan Desc:[facility] ADVANTAGE PLANS Primary Plan Number:[id number] Secondary Plan Desc: Secondary Plan Number: Assessment Information LACE LACE Length of stay for Answers: Less than 1 day current admission Acuity / Level of Answers: No Care: Did the patient have an inpatient admission? Comorbidities - select Answers: Other all that apply # of Emergency department Answers: 0 visits in the last 6 months Score: 1 Date Signed: 12/22/2017 11:47 AM Electronically Signed By:Audelia Denise RN Intervention Information Intervention Type:*DUSTIN-Signed Date of Service:12/22/2017 09:17 AM Patient Type:Observation Staff Member:Melonie Cruz Hours: Discipline: Severity: Comment:
== END 2017-12-22 10:30 | disposition home or self-care (01) ==
LOC: FCATH 10:41 → F2W 14:49
PROVIDERS: ADMIT Internal Medicine Cardiovascular Disease; ATTEND Internal Medicine Cardiovascular Disease
PROC: 025K3ZZ Destruction of Right Ventricle, Percutaneous Approach (ICD-10-PCS; principal; 2017-12-21)
PROC: 02573ZZ Destruction of Left Atrium, Percutaneous Approach (ICD-10-PCS; principal; 2017-12-21)
PROC: 02K83ZZ Map Conduction Mechanism, Percutaneous Approach (ICD-10-PCS; principal; 2017-12-21)
PROC: 5A1213Z Performance of Cardiac Pacing, Intermittent (ICD-10-PCS; principal; 2017-12-21)
PROC: 02563ZZ Destruction of Right Atrium, Percutaneous Approach (ICD-10-PCS; principal; 2017-12-21)
PROC: 4A023FZ Measurement of Cardiac Rhythm, Percutaneous Approach (ICD-10-PCS; principal; 2017-12-21)
DX: I48.92 Unspecified atrial flutter (principal)
CPT/HCPCS: 93005; 93306; 93312; 93613; 93621; 93623; 93653; 93662; C1731; C1732; C1759; C1766; G0378; J1100; J1644; J2250; J2370; J2405; J2704; J2720; J3010; J0461